=== PATIENT | female | born 1950 | race Caucasian/White ===

== ENCOUNTER 2017-08-15 09:26 | Outpatient (CLI) | payer OTHER, MEDICARE | END 2017-08-15 19:50 | disposition home or self-care (01) | LOC: SRD 09:26 | PROVIDERS: ATTEND Family Medicine | DX: Z01.818 Encounter for other preprocedural examination (principal) | CPT/HCPCS: 71046-TC ==

== ENCOUNTER 2018-12-25 13:07 | Outpatient (CLI) | payer OTHER, MEDICARE | END 2018-12-25 20:07 | disposition home or self-care (01) | LOC: SRD 13:07 | DX: Z01.818 Encounter for other preprocedural examination (principal); R05 Cough | CPT/HCPCS: 71046-TC ==